=== PATIENT | female | born 1955 | race Caucasian/White ===

== ENCOUNTER → 2018-11-03 | Outpatient (CLI) | payer MEDICAID | LOC: COL.RAD 11-01 11:00 | DX: R41.89 Other symptoms and signs involving cognitive functions and awareness (principal) ==

== ENCOUNTER → 2020-01-26 | Outpatient (CLI) | payer SELFPAY | LOC: ZCOL.LAB 12:37 → EDSTATUS 15:07 | DX: Z20.828 Contact with and (suspected) exposure to other viral communicable diseases (principal) ==